=== PATIENT | male | born 1965 | race Caucasian/White ===

== ENCOUNTER 2022-04-09 15:52 | Inpatient (IN) | payer OTHER ==
[2022-04-09 18:52] LABS: BASO % 1.2 % (0-2.0); EOS % 3.1 % (0-4.5); HEMATOCRIT 52.1 % (35.4-49); HEMOGLOBIN 17.3 GM/dL (11.7-16.9); LYMPH % 24.5 % (8-40); MCH 28.8 pg (25.7-33.7); MCHC 33.1 g/dl (32.0-35.9); MEAN CELL VOLUME 86.9 fl (80-96); MEAN PLT VOLUME 8.9 fl (7.5-11.1); MONO % 6.6 % (3.8-10.2); NEUT % 64.6 % (42.8-82.8); PLATELET COUNT 372 10^3/uL (134-434); RDW 14.5 % (11.9-15.9); WHITE BLOOD COUNT 10.1 K/mm3 (4.0-10.0)
[2022-04-09 19:06] LABS: INR 1.02 (0.83-1.09); PROTHROMBIN TIME (PATIENT) 11.7 SEC (9.7-13.0)
[2022-04-09 19:07] LABS: CHLORIDE 107 mmol/L (98-107); SODIUM 140 mmol/L (136-145)
[2022-04-09 19:08] LABS: ACTIVATED PTT 34.2 SECONDS (25.2-36.5)
[2022-04-09 19:10] LABS: ALBUMIN 3.8 g/dl (3.4-5.0); ANION GAP 7 MMOL/L (8-16); CO2 26 mmol/L (21-32); GLUCOSE,RANDOM 90 mg/dL (74-106); MAGNESIUM 2.2 mg/dL (1.8-2.4)
[2022-04-09 19:13] LABS: SGOT/AST 34 U/L (15-37); SGPT/ALT 45 U/L (13-61)
[2022-04-09 19:14] LABS: BILIRUBIN,TOTAL 0.4 mg/dL (0.2-1); TOT PROT 7.5 g/dl (6.4-8.2)
[2022-04-09 19:16] LABS: ALK PHOS 127 U/L (45-117)
[2022-04-09] MEDS ORDERED: LABETALOL HCL 5 MG/1 ML (100MG/20 ML VIAL) IVPUSH ONE (20:03)
[2022-04-09] MEDS ORDERED: ACETAMINOPHEN 500 MG TABLET (FP) PO ONE (20:28)
[2022-04-09] MEDS ORDERED: PANTOPRAZOLE 20 MG TABLET PO ONE (23:26)
[2022-04-09] MEDS ORDERED: ACETAMINOPHEN 325 MG TABLET (FP) ONE (23:26)
[2022-04-09] MEDS: PANTOPRAZOLE 20 MG TABLET PO SCH (23:43)
[2022-04-10] MEDS ORDERED: hydrALAZINE HCL 20 MG/ML VIAL IVPUSH ONE (01:04)
[2022-04-10 07:51] LABS: HEMATOCRIT 51.7 % (35.4-49); HEMOGLOBIN 17.4 GM/dL (11.7-16.9); MCHC 33.6 g/dl (32.0-35.9); MEAN CELL VOLUME 86.3 fl (80-96); MEAN PLT VOLUME 8.5 fl (7.5-11.1); PLATELET COUNT 376 10^3/uL (134-434); RBC 5.99 M/mm3 (4.00-5.60); RDW 14.7 % (11.9-15.9); WHITE BLOOD COUNT 10.5 K/mm3 (4.0-10.0)
[2022-04-10 08:18] LABS: CALCIUM 9.1 mg/dL (8.5-10.1)
[2022-04-10 08:19] LABS: ALBUMIN 4.2 g/dl (3.4-5.0); BLOOD UREA NITROGEN 21.4 mg/dL (7-18); MAGNESIUM 2.6 mg/dL (1.8-2.4)
[2022-04-10 08:22] LABS: PHOSPHOROUS 4.4 mg/dL (2.5-4.9)
[2022-04-10 08:24] LABS: BILIRUBIN,TOTAL 0.3 mg/dL (0.2-1); TOT PROT 7.7 g/dl (6.4-8.2)
[2022-04-10] MEDS ORDERED: PANTOPRAZOLE 20 MG TABLET PO ONE (09:20)
[2022-04-10] MEDS ORDERED: ENOXAPARIN NA (PORCINE) 40 MG/0.4 ML DISP.SYRIN SQ ONE (09:20)
[2022-04-10] MEDS: ENOXAPARIN NA (PORCINE) 40 MG/0.4 ML DISP.SYRIN SQ SCH (09:25)
[2022-04-10] MEDS: PANTOPRAZOLE 20 MG TABLET PO SCH (09:25)
[2022-04-10] MEDS ORDERED: amLODIPine BESYLATE 5 MG TABLET (FP) PO SCH (10:30)
[2022-04-10] MEDS ORDERED: LISINOPRIL 20 MG TABLET PO ONE (18:27)
[2022-04-10] MEDS ORDERED: LISINOPRIL 20 MG TABLET ONE (18:47)
[2022-04-10 20:29] LABS: URINE APPEARANCE CLEAR; URINE BILIRUBIN NEGATIVE (NEGATIVE); URINE COLOR YELLOW; URINE GLUCOSE (UA) NEGATIVE (NEGATIVE); URINE KETONE NEGATIVE (NEGATIVE); URINE LEUK ESTERASE NEGATIVE (NEGATIVE); URINE NITRITE NEGATIVE (NEGATIVE); URINE PROTEIN NEGATIVE (NEGATIVE); URINE UROBILINOGEN 0.2 mg/dL (0.2-1.0)
[2022-04-10] MEDS: ATORVASTATIN CA 20 MG TABLET (FP) PO SCH (22:00)
[2022-04-10 23:24] LABS: PH,URINE 5.5 (5.0-8.0); URINE APPEARANCE CLEAR; URINE BILIRUBIN NEGATIVE (NEGATIVE); URINE COLOR YELLOW; URINE GLUCOSE (UA) NEGATIVE (NEGATIVE); URINE KETONE TRACE (NEGATIVE); URINE LEUK ESTERASE NEGATIVE (NEGATIVE); URINE NITRITE NEGATIVE (NEGATIVE); URINE PROTEIN TRACE (NEGATIVE); URINE UROBILINOGEN 0.2 mg/dL (0.2-1.0)
[2022-04-11] MEDS ORDERED: ACETAMINOPHEN 1000 MG/100 ML BAG IVPB PRN (01:56)
[2022-04-11 02:16] VITALS: BMI 38.1
[2022-04-11] MEDS: MELATONIN 5 MG TABLETS PO PRN ×2 (02:42→21:26)
[2022-04-11 07:42] LABS: BASO % 1.4 % (0-2.0); EOS % 3.3 % (0-4.5); HEMATOCRIT 49.5 % (35.4-49); HEMOGLOBIN 16.5 GM/dL (11.7-16.9); LYMPH % 29.7 % (8-40); MCH 28.8 pg (25.7-33.7); MCHC 33.3 g/dl (32.0-35.9); MEAN CELL VOLUME 86.3 fl (80-96); MEAN PLT VOLUME 8.5 fl (7.5-11.1); MONO % 8.3 % (3.8-10.2); NEUT % 57.3 % (42.8-82.8); PLATELET COUNT 321 10^3/uL (134-434); RBC 5.74 M/mm3 (4.00-5.60); RDW 14.2 % (11.9-15.9); WHITE BLOOD COUNT 8.9 K/mm3 (4.0-10.0)
[2022-04-11 07:51] LABS: BLOOD UREA NITROGEN 24.7 mg/dL (7-18); CALCIUM 9.1 mg/dL (8.5-10.1); MAGNESIUM 2.3 mg/dL (1.8-2.4)
[2022-04-11 07:55] LABS: PHOSPHOROUS 3.6 mg/dL (2.5-4.9)
[2022-04-11] MEDS ORDERED: LISINOPRIL 20 MG TABLET PO SCH ×2 (10:00→18:00)
[2022-04-11] MEDS: LISINOPRIL 20 MG TABLET PO SCH (10:08)
[2022-04-11] MEDS: NICOTINE 14 MG/24 HOURS TOPICAL PATCH TD SCH (10:08)
[2022-04-11] MEDS: PANTOPRAZOLE 20 MG TABLET PO SCH (10:08)
[2022-04-11] MEDS: ENOXAPARIN NA (PORCINE) 40 MG/0.4 ML DISP.SYRIN SQ SCH (10:09)
[2022-04-11] MEDS: HYDROCHLOROTHIAZIDE 25 MG TABLET (FP) PO SCH (17:54)
[2022-04-11] MEDS: ATORVASTATIN CA 20 MG TABLET (FP) PO SCH (21:26)
[2022-04-12 07:21] LABS: BASO % 0.9 % (0-2.0); EOS % 3.1 % (0-4.5); HEMATOCRIT 51.2 % (35.4-49); HEMOGLOBIN 17.2 GM/dL (11.7-16.9); LYMPH % 27.4 % (8-40); MCH 28.9 pg (25.7-33.7); MCHC 33.5 g/dl (32.0-35.9); MEAN CELL VOLUME 86.3 fl (80-96); MEAN PLT VOLUME 8.7 fl (7.5-11.1); MONO % 6.3 % (3.8-10.2); NEUT % 62.3 % (42.8-82.8); PLATELET COUNT 326 10^3/uL (134-434); RBC 5.94 M/mm3 (4.00-5.60); RDW 14.3 % (11.9-15.9); WHITE BLOOD COUNT 9.6 K/mm3 (4.0-10.0)
[2022-04-12 07:41] LABS: BLOOD UREA NITROGEN 20.4 mg/dL (7-18)
[2022-04-12 07:44] LABS: PHOSPHOROUS 4.2 mg/dL (2.5-4.9)
[2022-04-12] MEDS: ENOXAPARIN NA (PORCINE) 40 MG/0.4 ML DISP.SYRIN SQ SCH (09:46)
[2022-04-12] MEDS: NICOTINE 14 MG/24 HOURS TOPICAL PATCH TD SCH (09:46)
[2022-04-12] MEDS: LISINOPRIL 20 MG TABLET PO SCH (09:46)
[2022-04-12] MEDS: HYDROCHLOROTHIAZIDE 25 MG TABLET (FP) PO SCH (09:46)
[2022-04-12] MEDS: PANTOPRAZOLE 20 MG TABLET PO SCH (09:46)
[2022-04-12] MEDS: AMOX TR/POT CLAV 875MG/125MG TABLETS (FP) PO SCH (18:36)
[2022-04-12] MEDS: ATORVASTATIN CA 20 MG TABLET (FP) PO SCH (21:41)
[2022-04-12] MEDS: MELATONIN 5 MG TABLETS PO PRN (21:41)
[2022-04-13] MEDS ORDERED: ACETAMINOPHEN 1000 MG/100 ML BAG IVPB PRN (06:01)
[2022-04-13] MEDS ORDERED: MAG HYDROX/AL HYDROX/SIMETH 30 ML UNIT-DOSE CUP PO ONE (06:02)
[2022-04-13 07:48] LABS: CALCIUM 9.5 mg/dL (8.5-10.1)
[2022-04-13 07:49] LABS: BLOOD UREA NITROGEN 21.7 mg/dL (7-18); MAGNESIUM 2.5 mg/dL (1.8-2.4)
[2022-04-13 07:52] LABS: CREATININE 1.3 mg/dL (0.55-1.3)
[2022-04-13 08:35] LABS: BASO % 0.8 % (0-2.0); EOS % 1.8 % (0-4.5); HEMATOCRIT 56.3 % (35.4-49); HEMOGLOBIN 18.7 GM/dL (11.7-16.9); LYMPH % 28.7 % (8-40); MCH 29.1 pg (25.7-33.7); MCHC 33.2 g/dl (32.0-35.9); MEAN CELL VOLUME 87.5 fl (80-96); MEAN PLT VOLUME 8.8 fl (7.5-11.1); MONO % 8.1 % (3.8-10.2); NEUT % 60.6 % (42.8-82.8); PLATELET COUNT 423 10^3/uL (134-434); RBC 6.44 M/mm3 (4.00-5.60); RDW 14.5 % (11.9-15.9); WHITE BLOOD COUNT 15.8 K/mm3 (4.0-10.0)
[2022-04-13] MEDS: AMOX TR/POT CLAV 875MG/125MG TABLETS (FP) PO SCH ×2 (10:52→18:11)
[2022-04-13] MEDS: HYDROCHLOROTHIAZIDE 25 MG TABLET (FP) PO SCH (10:52)
[2022-04-13] MEDS: LISINOPRIL 20 MG TABLET PO SCH (10:52)
[2022-04-13] MEDS: PANTOPRAZOLE 20 MG TABLET PO SCH (10:52)
[2022-04-13] MEDS: ENOXAPARIN NA (PORCINE) 40 MG/0.4 ML DISP.SYRIN SQ SCH (10:53)
[2022-04-13] MEDS: NICOTINE 14 MG/24 HOURS TOPICAL PATCH TD SCH (10:53)
[2022-04-13 15:37] VITALS: RESP 20
[2022-04-13] MEDS ORDERED: LACTATED RINGERS SOLUTION 1,000 ML/1,000 ML INFUS.BAG IV SCH (15:45)
[2022-04-13 18:11] VITALS: PULSE 110; TEMP 97.4
[2022-04-17 13:18] VITALS: BP 159/101
== END 2022-04-13 21:16 | disposition home or self-care (01) | DRG 199 ==
LOC: JER 15:52 → JERBED 17:41 → J4W 04-10 23:04
PROVIDERS: ADMIT Internal Medicine; ATTEND Internal Medicine
DX: I16.1 Hypertensive emergency (principal); K50.90 Crohn's disease, unspecified, without complications; H20.9 Unspecified iridocyclitis; R51.9 Headache, unspecified; I10 Essential (primary) hypertension; E66.9 Obesity, unspecified; Z68.39 Body mass index [BMI] 39.0-39.9, adult; R07.9 Chest pain, unspecified; R20.2 Paresthesia of skin; R05.9 Cough, unspecified; F17.210 Nicotine dependence, cigarettes, uncomplicated; H53.8 Other visual disturbances; F12.90 Cannabis use, unspecified, uncomplicated; R10.9 Unspecified abdominal pain; E78.5 Hyperlipidemia, unspecified
CPT/HCPCS: 0241U-QW; 36415; 70450-TC; 70551-TC; 71046-TC-FY; 71275-TC; 74174-TC; 80048; 80053; 80061; 81003; 82550; 82553; 83036; 83735; 84100; 84439; 84443; 84484; 85025; 85027; 85610; 85730; 87086; 93005; 93010; 93306-TC; 99291; 99292; Q9967